=== PATIENT | male | born 2000 | race Caucasian/White ===

== ENCOUNTER 2018-08-17 14:22 | Emergency (ER) | payer OTHER ==
[~2018-08-17] VITALS: Ht 193 cm; Wt 99.8 kg
[2018-08-17 16:20] VITALS: BP 136/81
== END 2018-08-17 16:20 | disposition home or self-care (01) ==
LOC: M.ERS 14:22
DX: F07.81 Postconcussional syndrome (principal); V49.9XXA Car occupant (driver) (passenger) injured in unspecified traffic accident, initial encounter; Y93.89 Activity, other specified; Y92.89 Other specified places as the place of occurrence of the external cause; Y99.8 Other external cause status